=== PATIENT | female | born 1970 | race Caucasian/White ===

== ENCOUNTER → 2017-02-28 | Outpatient (CLI) | payer MEDICARE, MEDICAID ==
--- NOTE | 2017-02-28 14:41 | RADRPT ---
PROCEDURE: Left knee radiographs. CLINICAL INDICATION: Left knee pain. Postop. TECHNIQUE: Three views. Weight bearing. Frontal, lateral, and patellar view. COMPARISON: 06/10/2014. FINDINGS: There is no fracture or dislocation. The soft tissues are normal. There is a total left knee arthroplasty which appears satisfactory. There is no lytic or blastic lesion. There is no joint effusion. IMPRESSION: 1. Satisfactory postoperative appearance of the left knee. RPTAT: QQ .Mohsen Gould MD, Date Time Electronically viewed and signed by .Mohsen Gould MD, on 02/28/2017 14:40 .R/
== END | disposition home or self-care (01) ==
LOC: HKI 14:40
PROVIDERS: ATTEND Orthopaedic Surgery
DX: M25.562 Pain in left knee (principal); T84.093A Other mechanical complication of internal left knee prosthesis, initial encounter; Z96.652 Presence of left artificial knee joint
CPT/HCPCS: 73562; G0463